=== PATIENT | female | born 1955 | race African-American/Black ===

== ENCOUNTER 2021-11-15 19:56 | Inpatient (IN) ==
[2021-11-16] MEDS ORDERED: Ondansetron 4 mg VIAL 2 MG/ML 2 ml VIAL IV ONE (02:02)
[2021-11-16] MEDS ORDERED: NS 0.9% 1000 ml BAG 1,000 ML IV ONE (02:02)
[2021-11-16 06:34] LABS: ABS Monocytes 0.4 10^3/ul (0-0.8); ABS Neutrophils 9.2 10^3/ul (1.5-7.7); Eosinophil % 0.1 %; Hematocrit 26 % (35-47); Hemoglobin 8.1 g/dL (12.0-16.0); Mean Corpuscular HGB Conc 31 g/dL (31-36); Mean Corpuscular Hemoglobin 26 pg (27-31); Mean Corpuscular Volume 83 fL (80-97); Nucleated Red Blood Cells % 0.2; Platelet Count 172 10^3/uL (150-450); Red Blood Count 3.17 10^6 /uL (3.70-4.87); Red Cell Distribution Width 16 % (10-15); White Blood Count 10.7 10^3/uL (3.5-10.8)
[2021-11-16 06:48] LABS: Albumin 3.3 g/dL (3.2-5.2); Calcium 6.5 mg/dL (8.6-10.3); Potassium 3.4 mmol/L (3.5-5.0); Total Bilirubin 0.2 mg/dL (0.2-1.0)
[2021-11-16 06:54] LABS: Albumin/Globulin Ratio 1.7 (1-3); Globulin 1.9 g/dL (2-4); Phosphorus 4.9 mg/dL (2.5-5.0); Total Protein 5.2 g/dL (6.4-8.9)
[2021-11-16] MEDS ORDERED: Lactated Ringers 1000 ml BAG 1,000 ML IV ONE (07:07)
[2021-11-16] MEDS ORDERED: Sodium Bicarb 8.4% Vial 50 ML 150 MEQ in D5W 1000 ml BAG 850 ML IV ONE ×2 (07:08→10:03)
[2021-11-16 07:51] LABS: PCO2 Arterial 27 mmHg (35-45); PO2 Arterial 133 mmHg (80-100)
[2021-11-16 08:15] LABS: Urine Appearance Clear; Urine Color Yellow
[2021-11-16 08:16] LABS: Urine Bilirubin Negative (Negative); Urine Blood Trace (Intact) (Negative); Urine Glucose Negative (Negative); Urine Ketones Negative (Negative); Urine Nitrite Negative (Negative); Urine Protein Trace (Negative); Urine Specific Gravity 1.015 (1.005-1.030); Urine Urobilinogen 0.2 (Negative) (Negative); Urine pH 5.5 (5.0-9.0)
[2021-11-16 08:17] LABS: Urine Bacteria Absent (Absent); Urine Red Blood Cell Trace(0-2/hpf) (Absent); Urine White Blood Cell Trace(0-5/hpf) (Absent)
[2021-11-16] MEDS ORDERED: Magnesium Sulf 4 GM/100 ML IV 4,000 MG/100 ML BAG IVPB ONE (10:51)
[2021-11-16] MEDS ORDERED: Ondansetron 4 mg VIAL 2 MG/ML 2 ml VIAL ONE (11:15)
[2021-11-16] MEDS: Ondansetron 4 mg VIAL 2 MG/ML 2 ml VIAL IV PRN (11:20)
[2021-11-16 14:47] LABS: Blood Urea Nitrogen 75 mg/dL (6-24); Calcium 7.9 mg/dL (8.6-10.3); Chloride 110 mmol/L (101-111); Glucose 162 mg/dL (70-100); Sodium 139 mmol/L (135-145); Total Iron Binding Capacity 363 mcg/dL (250-450); Transferrin 259 mg/dL (203-362); eGFR CKD-EPI 6.1 (>60)
[2021-11-16 14:51] LABS: Anion Gap 15 mmol/L (2-11); CO2 Carbon Dioxide 14 mmol/L (22-32)
[2021-11-16 14:59] LABS: Ferritin 172.6 ng/mL (11-307)
[2021-11-16 16:29] LABS: Magnesium 2.8 mg/dL (1.9-2.7); Potassium Redraw 3.4 mmol/L (3.5-5.0)
[2021-11-16] MEDS: Sodium Bicarb 650 mg (ANTACID) TAB PO SCH ×2 (16:50→21:01)
[2021-11-16] MEDS ORDERED: Sodium Bicarb 650 mg (ANTACID) TAB PO SCH (17:00)
[2021-11-16] MEDS ORDERED: Dextrose 50% Syringe 50 ml 25 GM/50 ML SYRINGE IV PUSH PRN (18:31)
[2021-11-16] MEDS: Cholestyramine Resin 4 GM POWDER PO SCH (21:00)
[2021-11-16] MEDS: Heparin 5000 UNITS/ML 1 mL VIAL SUBCUT SCH (21:03)
[2021-11-16] MEDS ORDERED: Ramelteon 8 mg TAB (NF) PO ONE (23:16)
[2021-11-17] MEDS: KCL 20 MEQ/100 ML IVPREMIX 20 MEQ/100 ML BAG IV SCH ×2 (00:24→02:54)
[2021-11-17] MEDS: Sodium Bicarb 650 mg (ANTACID) TAB PO SCH ×3 (05:35→20:57)
[2021-11-17 06:09] LABS: ABS Eosinophils 0.1 10^3/ul (0-0.6); ABS Lymphocytes 2.6 10^3/ul (1.0-4.8); ABS Monocytes 0.5 10^3/ul (0-0.8); ABS Neutrophils 3.6 10^3/ul (1.5-7.7); Eosinophil % 1.9 %; Hematocrit 23 % (35-47); Hemoglobin 7.5 g/dL (12.0-16.0); Lymphocyte % 37.9 %; Mean Corpuscular HGB Conc 33 g/dL (31-36); Mean Corpuscular Hemoglobin 25 pg (27-31); Mean Corpuscular Volume 77 fL (80-97); Nucleated Red Blood Cells % 0.1; Platelet Count 190 10^3/uL (150-450); Red Blood Count 2.99 10^6 /uL (3.70-4.87); Red Cell Distribution Width 15 % (10-15); White Blood Count 6.8 10^3/uL (3.5-10.8)
[2021-11-17 07:16] LABS: Albumin 3.8 g/dL (3.2-5.2); Albumin/Globulin Ratio 1.7 (1-3); Calcium 8.1 mg/dL (8.6-10.3); Globulin 2.2 g/dL (2-4); Magnesium 2.3 mg/dL (1.9-2.7); Phosphorus 4.4 mg/dL (2.5-5.0); Potassium 4.4 mmol/L (3.5-5.0); Total Bilirubin 0.4 mg/dL (0.2-1.0); eGFR CKD-EPI 6.2 (>60)
[2021-11-17] MEDS: Heparin 5000 UNITS/ML 1 mL VIAL SUBCUT SCH ×2 (09:05→20:58)
[2021-11-17] MEDS: Ondansetron 4 mg VIAL 2 MG/ML 2 ml VIAL IV PRN ×2 (09:06→20:52)
[2021-11-17] MEDS: Cholestyramine Resin 4 GM POWDER PO SCH ×2 (11:36→20:52)
[2021-11-18] MEDS ORDERED: Vancomycin 1,000 MG in NS 0.9% 250 ml 250 ML IVPB ONE (06:00)
[2021-11-18] MEDS: Sodium Bicarb 650 mg (ANTACID) TAB PO SCH ×3 (06:03→22:07)
[2021-11-18 06:44] LABS: ABS Eosinophils 0.1 10^3/ul (0-0.6); ABS Lymphocytes 2.5 10^3/ul (1.0-4.8); ABS Monocytes 0.5 10^3/ul (0-0.8); ABS Neutrophils 3.1 10^3/ul (1.5-7.7); Hematocrit 22 % (35-47); Hemoglobin 7.2 g/dL (12.0-16.0); Lymphocyte % 39.6 %; Mean Corpuscular HGB Conc 33 g/dL (31-36); Mean Corpuscular Hemoglobin 25 pg (27-31); Mean Corpuscular Volume 77 fL (80-97); Mean Platelet Volume 8.5 fL (7.4-10.4); Nucleated Red Blood Cells % 0.1; Platelet Count 187 10^3/uL (150-450); Red Blood Count 2.89 10^6 /uL (3.70-4.87); Red Cell Distribution Width 15 % (10-15); White Blood Count 6.2 10^3/uL (3.5-10.8)
[2021-11-18 06:52] LABS: Calcium 8.3 mg/dL (8.6-10.3); eGFR CKD-EPI 6.4 (>60)
[2021-11-18] MEDS ORDERED: fentaNYL 100 mcg/2 ml 50 MCG/ML VIAL ONE (07:19)
[2021-11-18] MEDS ORDERED: Heparin 1,000 UNIT/ML 10 ml (10,000 UNITS) CATHLAB/DIALYSIS ONE (07:19)
[2021-11-18] MEDS ORDERED: Midazolam 5 mg/5 ml VIAL 1 mg/ml 5 ml VIAL (5 mg) ONE (07:19)
[2021-11-18] MEDS ORDERED: Heparin 2 UNITS/ML 1000 mls 1,000 ML IV ONE (07:20)
[2021-11-18] MEDS ORDERED: Lidocaine 1% MPF 5 ML VIAL ONE (07:20)
[2021-11-18] MEDS: Heparin 1,000 UNIT/ML 10 ml (10,000 UNITS) CATHLAB/DIALYSIS DIALYSIS ONE ×3 (09:24→12:03)
[2021-11-18 12:37] LABS: ABS Eosinophils 0.1 10^3/ul (0-0.6); ABS Lymphocytes 1.7 10^3/ul (1.0-4.8); ABS Monocytes 0.5 10^3/ul (0-0.8); Eosinophil % 0.9 %; Hematocrit 26 % (35-47); Hemoglobin 8.6 g/dL (12.0-16.0); Mean Corpuscular HGB Conc 34 g/dL (31-36); Mean Corpuscular Hemoglobin 26 pg (27-31); Mean Corpuscular Volume 76 fL (80-97); Mean Platelet Volume 8.2 fL (7.4-10.4); Platelet Count 203 10^3/uL (150-450); Red Blood Count 3.37 10^6 /uL (3.70-4.87); Red Cell Distribution Width 15 % (10-15); White Blood Count 9.4 10^3/uL (3.5-10.8)
[2021-11-18 12:44] LABS: Activated Partial Thrombo Time 66.9 seconds (26.0-38.0); INR 0.91 (0.89-1.11)
[2021-11-18 13:30] LABS: eGFR CKD-EPI 10.7 (>60)
[2021-11-18 13:32] LABS: Hepatitis B Surface Antigen Nonreactive (Nonreactive)
[2021-11-18 13:50] LABS: Hepatitis B Surface Ab Not Immune (Immune)
[2021-11-18] MEDS ORDERED: Lidocaine PATCH 5% PATCH TRANSDERM PRN (14:13)
[2021-11-18] MEDS: Cholestyramine Resin 4 GM POWDER PO SCH (14:43)
[2021-11-18] MEDS ORDERED: HYDROmorphone 0.5 MG/0.5 ML SYRINGE IV SLOW PU ONE (15:43)
[2021-11-18] MEDS: Ondansetron 4 mg VIAL 2 MG/ML 2 ml VIAL IV PRN (19:38)
[2021-11-18] MEDS: Heparin 5000 UNITS/ML 1 mL VIAL SUBCUT SCH (23:42)
[2021-11-19] MEDS: Cholestyramine Resin 4 GM POWDER PO SCH ×3 (01:39→22:26)
[2021-11-19] MEDS: Sodium Bicarb 650 mg (ANTACID) TAB PO SCH ×3 (08:10→22:21)
[2021-11-19 08:37] LABS: ABS Basophils 0.1 10^3/ul (0-0.2); ABS Eosinophils 0.1 10^3/ul (0-0.6); ABS Lymphocytes 3.5 10^3/ul (1.0-4.8); ABS Neutrophils 5.3 10^3/ul (1.5-7.7); Eosinophil % 1.3 %; Hematocrit 27 % (35-47); Hemoglobin 8.5 g/dL (12.0-16.0); Lymphocyte % 34.8 %; Mean Corpuscular HGB Conc 32 g/dL (31-36); Mean Corpuscular Hemoglobin 24 pg (27-31); Mean Corpuscular Volume 76 fL (80-97); Mean Platelet Volume 7.9 fL (7.4-10.4); Nucleated Red Blood Cells % 0.1; Platelet Count 209 10^3/uL (150-450); Red Blood Count 3.51 10^6 /uL (3.70-4.87); Red Cell Distribution Width 15 % (10-15)
[2021-11-19] MEDS: Heparin 1,000 UNIT/ML 10 ml (10,000 UNITS) CATHLAB/DIALYSIS DIALYSIS ONE ×5 (09:15→12:15)
[2021-11-19 09:37] LABS: Calcium 8.9 mg/dL (8.6-10.3); Magnesium 1.8 mg/dL (1.9-2.7); Phosphorus 3.3 mg/dL (2.5-5.0); Potassium 4.2 mmol/L (3.5-5.0)
[2021-11-19] MEDS: Heparin 5000 UNITS/ML 1 mL VIAL SUBCUT SCH ×2 (13:07→22:30)
[2021-11-19] MEDS ORDERED: HYDROmorphone 0.5 MG/0.5 ML SYRINGE IV SLOW PU ONE ×2 (15:37→16:46)
[2021-11-19] MEDS: Ondansetron 4 mg VIAL 2 MG/ML 2 ml VIAL IV PRN ×2 (16:16→22:26)
[2021-11-19] MEDS ORDERED: Lorazepam PYXIS KEY PRN (16:47)
[2021-11-19] MEDS: LORazepam 2 mg VIAL 1 ml IV PUSH ONE ×2 (16:54→17:51)
[2021-11-19] MEDS: HYDROmorphone 1 MG/1 ML SYRINGE IV SLOW PU SCH (22:28)
[2021-11-20] MEDS: HYDROmorphone 1 MG/1 ML SYRINGE IV SLOW PU SCH ×4 (04:29→22:11)
[2021-11-20] MEDS: Ondansetron 4 mg VIAL 2 MG/ML 2 ml VIAL IV PRN ×4 (04:29→22:10)
[2021-11-20] MEDS: Sodium Bicarb 650 mg (ANTACID) TAB PO SCH ×3 (04:29→22:13)
[2021-11-20 05:47] LABS: ABS Eosinophils 0.2 10^3/ul (0-0.6); ABS Lymphocytes 3.9 10^3/ul (1.0-4.8); ABS Monocytes 0.9 10^3/ul (0-0.8); ABS Neutrophils 4.8 10^3/ul (1.5-7.7); ABS Nucleated RBC 0.2 10^3/ul; Eosinophil % 1.6 %; Hematocrit 26 % (35-47); Hemoglobin 8.6 g/dL (12.0-16.0); Lymphocyte % 40.2 %; Mean Corpuscular HGB Conc 33 g/dL (31-36); Mean Corpuscular Hemoglobin 25 pg (27-31); Mean Corpuscular Volume 77 fL (80-97); Mean Platelet Volume 8.4 fL (7.4-10.4); Nucleated Red Blood Cells % 1.7; Platelet Count 210 10^3/uL (150-450); Red Cell Distribution Width 15 % (10-15); White Blood Count 9.8 10^3/uL (3.5-10.8)
[2021-11-20 06:02] LABS: Calcium 9.4 mg/dL (8.6-10.3); eGFR CKD-EPI 9.2 (>60)
[2021-11-20] MEDS: Heparin 5000 UNITS/ML 1 mL VIAL SUBCUT SCH ×2 (09:01→22:10)
[2021-11-20] MEDS: Cholestyramine Resin 4 GM POWDER PO SCH ×2 (10:51→22:26)
[2021-11-21] MEDS ORDERED: LORazepam 2 mg VIAL 1 ml IV PUSH ONE (00:33)
[2021-11-21] MEDS ORDERED: Lorazepam PYXIS KEY PRN (00:33)
[2021-11-21 04:41] LABS: ABS Basophils 0.1 10^3/ul (0-0.2); ABS Eosinophils 0.2 10^3/ul (0-0.6); ABS Lymphocytes 3.6 10^3/ul (1.0-4.8); ABS Monocytes 0.9 10^3/ul (0-0.8); ABS Neutrophils 4.7 10^3/ul (1.5-7.7); ABS Nucleated RBC 0.1 10^3/ul; Eosinophil % 1.9 %; Hematocrit 26 % (35-47); Hemoglobin 8.2 g/dL (12.0-16.0); Lymphocyte % 37.9 %; Mean Corpuscular HGB Conc 31 g/dL (31-36); Mean Corpuscular Hemoglobin 24 pg (27-31); Mean Corpuscular Volume 78 fL (80-97); Mean Platelet Volume 8.2 fL (7.4-10.4); Nucleated Red Blood Cells % 0.9; Platelet Count 229 10^3/uL (150-450); Red Blood Count 3.36 10^6 /uL (3.70-4.87); Red Cell Distribution Width 15 % (10-15); White Blood Count 9.4 10^3/uL (3.5-10.8)
[2021-11-21] MEDS: HYDROmorphone 1 MG/1 ML SYRINGE IV SLOW PU SCH ×2 (05:39→14:29)
[2021-11-21 05:40] LABS: Magnesium 1.8 mg/dL (1.9-2.7); Potassium 4.3 mmol/L (3.5-5.0); eGFR CKD-EPI 7.6 (>60)
[2021-11-21] MEDS: Sodium Bicarb 650 mg (ANTACID) TAB PO SCH ×2 (05:40→14:29)
[2021-11-21] MEDS: Ondansetron 4 mg VIAL 2 MG/ML 2 ml VIAL IV PRN ×3 (07:51→20:39)
[2021-11-21] MEDS: Heparin 1,000 UNIT/ML 10 ml (10,000 UNITS) CATHLAB/DIALYSIS DIALYSIS PRN ×4 (08:25→12:00)
[2021-11-21] MEDS ORDERED: Albumin Human 25% 25 GM/100 ML BTL IV ONE (09:30)
[2021-11-21] MEDS: Heparin 5000 UNITS/ML 1 mL VIAL SUBCUT SCH ×2 (14:28→21:31)
[2021-11-21] MEDS: Cholestyramine Resin 4 GM POWDER PO SCH (14:29)
[2021-11-21] MEDS ORDERED: Magnesium Sulfate IV 1GM/100ML 1 GM/100 ML BAG IV ONE (18:11)
[2021-11-21] MEDS ORDERED: NS 0.9% 250 ml 250 ML IV ONE (20:37)
[2021-11-22] MEDS: Cholestyramine Resin 4 GM POWDER PO SCH ×3 (00:14→22:29)
[2021-11-22 06:02] LABS: ABS Eosinophils 0.2 10^3/ul (0-0.6); ABS Lymphocytes 2.5 10^3/ul (1.0-4.8); ABS Monocytes 0.7 10^3/ul (0-0.8); ABS Neutrophils 4.5 10^3/ul (1.5-7.7); ABS Nucleated RBC 0.2 10^3/ul; Eosinophil % 2.3 %; Hematocrit 23 % (35-47); Hemoglobin 7.2 g/dL (12.0-16.0); Lymphocyte % 31.9 %; Mean Corpuscular HGB Conc 32 g/dL (31-36); Mean Corpuscular Hemoglobin 25 pg (27-31); Mean Corpuscular Volume 80 fL (80-97); Mean Platelet Volume 8.4 fL (7.4-10.4); Nucleated Red Blood Cells % 1.9; Platelet Count 196 10^3/uL (150-450); Red Blood Count 2.87 10^6 /uL (3.70-4.87); Red Cell Distribution Width 15 % (10-15); White Blood Count 7.9 10^3/uL (3.5-10.8)
[2021-11-22 06:34] LABS: Albumin 3.6 g/dL (3.2-5.2); Albumin/Globulin Ratio 1.8 (1-3); Calcium 8.7 mg/dL (8.6-10.3); Magnesium 2.1 mg/dL (1.9-2.7); Potassium 4.3 mmol/L (3.5-5.0); Total Bilirubin 0.4 mg/dL (0.2-1.0); Total Protein 5.6 g/dL (6.4-8.9); eGFR CKD-EPI 9.7 (>60)
[2021-11-22] MEDS: Heparin 5000 UNITS/ML 1 mL VIAL SUBCUT SCH ×2 (09:31→20:26)
[2021-11-22] MEDS: Ondansetron 4 mg VIAL 2 MG/ML 2 ml VIAL IV PRN (09:32)
[2021-11-23 05:30] LABS: ABS Basophils 0.1 10^3/ul (0-0.2); ABS Eosinophils 0.2 10^3/ul (0-0.6); ABS Lymphocytes 2.9 10^3/ul (1.0-4.8); ABS Monocytes 0.9 10^3/ul (0-0.8); ABS Neutrophils 4.3 10^3/ul (1.5-7.7); Eosinophil % 2.8 %; Hematocrit 25 % (35-47); Hemoglobin 7.8 g/dL (12.0-16.0); Lymphocyte % 34.7 %; Mean Corpuscular HGB Conc 32 g/dL (31-36); Mean Corpuscular Hemoglobin 25 pg (27-31); Mean Corpuscular Volume 79 fL (80-97); Nucleated Red Blood Cells % 0.3; Platelet Count 206 10^3/uL (150-450); Red Blood Count 3.09 10^6 /uL (3.70-4.87); Red Cell Distribution Width 15 % (10-15); White Blood Count 8.4 10^3/uL (3.5-10.8)
[2021-11-23 06:03] LABS: Calcium 9.2 mg/dL (8.6-10.3); Potassium 4.5 mmol/L (3.5-5.0); eGFR CKD-EPI 7.5 (>60)
[2021-11-23] MEDS: Heparin 5000 UNITS/ML 1 mL VIAL SUBCUT SCH ×2 (07:59→22:27)
[2021-11-23] MEDS: Ondansetron 4 mg VIAL 2 MG/ML 2 ml VIAL IV PRN ×4 (08:00→23:22)
[2021-11-23] MEDS: Heparin 1,000 UNIT/ML 10 ml (10,000 UNITS) CATHLAB/DIALYSIS DIALYSIS PRN ×3 (10:42→12:47)
[2021-11-23] MEDS: Cholestyramine Resin 4 GM POWDER PO SCH ×2 (14:37→23:22)
[2021-11-24 05:23] LABS: ABS Eosinophils 0.1 10^3/ul (0-0.6); ABS Monocytes 0.8 10^3/ul (0-0.8); Eosinophil % 1.5 %; Hematocrit 26 % (35-47); Hemoglobin 8.6 g/dL (12.0-16.0); Lymphocyte % 33.9 %; Mean Corpuscular HGB Conc 33 g/dL (31-36); Mean Corpuscular Hemoglobin 26 pg (27-31); Mean Corpuscular Volume 80 fL (80-97); Mean Platelet Volume 7.9 fL (7.4-10.4); Nucleated Red Blood Cells % 0.3; Platelet Count 215 10^3/uL (150-450); Red Blood Count 3.24 10^6 /uL (3.70-4.87); Red Cell Distribution Width 15 % (10-15)
[2021-11-24 05:40] LABS: Calcium 10.1 mg/dL (8.6-10.3); Magnesium 1.9 mg/dL (1.9-2.7); Potassium 4.3 mmol/L (3.5-5.0); eGFR CKD-EPI 10.3 (>60)
[2021-11-24] MEDS: Ondansetron 4 mg VIAL 2 MG/ML 2 ml VIAL IV PRN ×3 (08:11→23:37)
[2021-11-24] MEDS: Heparin 5000 UNITS/ML 1 mL VIAL SUBCUT SCH ×2 (08:11→20:52)
[2021-11-24] MEDS: Cholestyramine Resin 4 GM POWDER PO SCH ×2 (11:21→23:27)
[2021-11-25 05:42] LABS: ABS Eosinophils 0.2 10^3/ul (0-0.6); ABS Lymphocytes 2.1 10^3/ul (1.0-4.8); ABS Monocytes 0.7 10^3/ul (0-0.8); ABS Neutrophils 4.1 10^3/ul (1.5-7.7); Eosinophil % 2.6 %; Hematocrit 27 % (35-47); Hemoglobin 8.4 g/dL (12.0-16.0); Lymphocyte % 29.5 %; Mean Corpuscular HGB Conc 32 g/dL (31-36); Mean Corpuscular Hemoglobin 26 pg (27-31); Mean Corpuscular Volume 80 fL (80-97); Nucleated Red Blood Cells % 0.2; Platelet Count 218 10^3/uL (150-450); Red Blood Count 3.31 10^6 /uL (3.70-4.87); Red Cell Distribution Width 16 % (10-15); White Blood Count 7.1 10^3/uL (3.5-10.8)
[2021-11-25 06:01] LABS: Calcium 10.4 mg/dL (8.6-10.3); Magnesium 2.1 mg/dL (1.9-2.7); Potassium 4.2 mmol/L (3.5-5.0); eGFR CKD-EPI 7.9 (>60)
[2021-11-25] MEDS: Heparin 1,000 UNIT/ML 10 ml (10,000 UNITS) CATHLAB/DIALYSIS DIALYSIS PRN ×4 (07:47→11:00)
[2021-11-25] MEDS ORDERED: Polyethylene Glycol 3350 17 GM PACKET PO PRN (08:49)
[2021-11-25] MEDS: Heparin 5000 UNITS/ML 1 mL VIAL SUBCUT SCH (11:49)
[2021-11-25 12:16] VITALS: BP 145/75
[2021-11-25] MEDS: Cholestyramine Resin 4 GM POWDER PO SCH (15:02)
[2021-11-25 15:59] LABS: Urine Creatinine Concentration 37.58 mg/dL; Urine Urea Nitrogen/24HR 1.3 g/24hr
== END 2021-11-25 15:10 | disposition home or self-care (01) | DRG 674 ==
LOC: ED 19:56 → SUATTDRO 11-16 08:10 → EDHOLD 11-16 08:10 → ICU 11-16 09:32 → MEDTELE 11-16 18:41
PROVIDERS: ADMIT Internal Medicine Critical Care Medicine; ATTEND Student in an Organized Health Care Education/Training Program